=== PATIENT | male | born 1940 | race Caucasian/White ===

== ENCOUNTER 2016-06-30 08:08 | Day surgery (SDC) | payer MEDICARE ==
[~2016-06-30] VITALS: Ht 167.6 cm; Wt 73.1 kg
[2016-06-30] MEDS: Lactated Ringer's 1,000 ML IV SCH ×2 (05:11→09:48)
[~2016-06-30 08:08] MED LIST: ALBU8.5H2 INHALATION; BUTA1TAB52 PO; CETI10CA PO; CHOL200047 PO; CYAN500 PO; CeFAZolin 2 Gm/50 mL D5W IV Premix IV ONE; FINA5TAB9 PO; FLUN25SP NS; LEVO75CA2 PO; LISI10TA PO; MIRA50TA PO; MULT-1018 PO; OLOP2.5D OP; OMEP20TA86 PO; PRD5T PO; SAW/1TAB2 PO; TAMS0.4C98 PO; TRAZ-118 PO; gabapentin PO; melatonin PO
[2016-06-30] MEDS ORDERED: Ketamine 10 mg/mL 20 mL Inj ONE (08:09)
[2016-06-30] MEDS ORDERED: fentaNYL-PF 50 mCg/mL 2 mL Inj ONE (08:09)
[2016-06-30 08:33] VITALS: BP 135/92; PULSE 57; RESP 16; O2SAT 99
--- NOTE | 2016-06-30 09:18 | PCM.HPANE ---
Patient Data Surgeon Admitting Provider: Attending Provider:Tammie Drake MD Primary Care Physician:Miah Mckeon MD Other Provider:Mahogany [place] Anesthesia Reason for Visit Urge Incontinence Ht/WT & BMI Height (Feet): 5 Height (Inches): 6.00 Weight (Kilograms): 73.1 Body Mass Index 25.00 Allergies Uncoded Allergies: SEASONAL ALLERGIES (Allergy, Unknown, 06/25/16) Past Anesthesia History Anesthesia History: Denies:: Abnormal Airway, Anesthesia Reactions, Difficult Intubation, Fam Anesthesia Reaction Diabetes History Hx Diabetes?: No MRSA MRSA: No Medications Hypertension Medication: Yes Home Meds Incl Beta New: No Reported Medications Cetirizine HCl (Zyrtec)10 Mg Knabpht42 Mg PO HS #30 CAPSULE Ref 0 06/25/16 Cholecalciferol (Vitamin D3) (Vitamin D3)2,000 Unit Capsule2,000 Unit PO DAILY 06/25/16 Cyanocobalamin (Vitamin B12)500 Mcg Tablet1,000 Mcg PO DAILY 06/25/16 Trazodone 100 Mg [id number] Mg PO BID Ref 0 06/25/16 Levothyroxine (Tirosint)75 Mcg Yoqaxkb41 Mcg PO DAILY 06/25/16 Tamsulosin (Flomax)0.4 Mg Capsule0.4 Mg PO DAILY Ref 0 06/25/16 Saw/Vit E/Sod Dania/Lyc/Beta/Pyg (Prostate Health Caplet)1 Each Tablet1 Each PO DAILY 06/25/16 Albuterol HFA (Proair HFA)8.5 Gm Hfa.aer.ad2 Puffs INHALATION Q4H PRN For Shortness of Breath #1 INHALER 06/25/16 Prednisone (PredniSONE)5 Mg Tab5 Mg PO DAILY Ref 0 06/25/16 Olopatadine HCl (Pataday)2.5 Ml Drops2.5 Ml OP DAILY 06/25/16 Omeprazole 20 Mg Tablet.dr20 Mg PO DAILY 06/25/16 Mirabegron ER (Myrbetriq)50 Mg Fsklrz74 Mg PO DAILY 06/25/16 Multivitamin (Multi Vitamin Daily)1 Each Tablet1 Each PO DAILY 30 Days Ref 0 06/25/16 [melatonin] No Conflict CheckUnknown Dose DAILY 06/25/16 Lisinopril 10 Mg Lcdhwj09 Mg PO DAILY 30 Days Ref 0 06/25/16 [gabapentin] No Conflict CheckUnknown Dose TID 06/25/16 Flunisolide 25 Ml Spray25 Ml NS BID 06/25/16 Finasteride 5 Mg Tablet5 Mg PO DAILY 30 Days Ref 0 06/25/16 Butalbital/Acetaminophen 50-325 mg 1 Each Tablet1-2 Tablet PO Q4H PRN migraines 06/25/16 History HEENT History: Denies:: Abnormal Airway Difficult Intubation Dysphagia Hearing Problem Sinus Problem TMJ Hx of Heart Problems?: Yes Cardiovascular History: Positive for:: Hypertension Denies:: AICD Chest Pain Congestive Heart Failure Coronary Artery Disease Edema Heart Murmur Irregular Heartbeat Pacemaker Peripheral Vascular Hx of Respiratory Problem?: Yes Respiratory History: Positive for:: Asthma (during spring- seasonally) Use of Inhalers / NEBS (during spring) Denies:: COPD Emphysema Oxygen Administration Pneumonia Tuberculosis Use of C-PAP Machine Hx Neurologic Problems?: Yes Neurological History: Positive for:: Headaches (migraines - a couple a month) Denies:: CVA Dizziness Multiple Sclerosis Parkinson's Disease Seizures TIA Hx of GI Problems?: Yes Gastrointestinal History: Positive for:: Gastroesphageal Reflux Heartburn Denies:: Gall Bladder Disease Gastrointestinal Bleeding Hepatitis Hiatal Hernia Liver Disease Rectal Bleeding Hx of Problems?: Yes Genitourinary History: Denies:: Kidney Stones Urinary Tract Infection Male Hx: Positive for:: Prostate Problems (s/p turp) Skin History: Denies:: History Skin Disorders? Pressure Ulcers Hx Musculoskeletal Problems?: Yes Musculoskeletal History: Positive for:: Back Injury (chronic back pain, ) Denies:: Fibromyalgia Joint Replacement Musculoskeletal Trauma Myasthenia Gravis Osteoarthritis Rheumatoid Arthritis Hx of Psycho/Social Problems?: No Psycho Social History: Denies:: Anxiety Hx Depression Hx Surgeries?: Yes (hernia repair, TURP, ) Hx Any Other Health Problems?: Yes Other History: Positive for:: Cancer (skin cancer facial, scalp, ) Thyroid Disease History Blood Transfusions: Positive for:: Accept Blood Products? Denies:: Blood Transfusions Hx Diabetes: No Hx Alcohol Use: NoHx Substance Use: NoHave You Smoked inLast 12 mo: No Stop/Bang S-Snoring: Do You Snore Loudly: No T-Tired: feel tired, fatigued: Yes O-Obsered: Observed not breath: No P-Blood Pressure: treated: Yes B- Body Mass Index > 35 kg/m2: No A- Age over 50: Yes N- Neck Large Circumference: No G- Gender Male: Yes JOANN Total Score: 4 JOANN Risk Assessment: High Risk, =/>3 Yes JOANN Category 4 OutPt Procedure: Yes Risk Assessment Category Category 1A: Patient has history of documented sleep apnea, and HAS NOT received any narcotic, sedative or anesthesia administration during this stay. Category 1B: Patient has history of documented sleep apnea, and HAS received any narcotic , sedative or anesthesia administration during this stay Category 2: Patient has SUSPECTED Obstructive Sleep Apnea, and HAS received any narcotic , sedative or anesthesia administration during this stay. Category 3: Patient has SUSPECTED Obstructive Sleep Apnea and HAS NOT received narcotic, sedative or anesthesia administration during this stay. Category 4: Outpatient in Procedural Areas with known sleep apnea or who screen positive for High Risk via the STOP/BANG questionnaire. Exam Exam Vital Signs Vital Signs Date Time Temp Pulse Resp B/P Pulse Ox O2 Delivery O2 Flow Rate FiO2 06/30/16 08:33 36.4 57 16 135/92 99 Room Air General Appearance: Alert, Oriented X3, Cooperative, No Acute Distress HEENT/AIRWAY: MP 2 Lungs: Clear to Auscultation, Normal Air Movement Heart: Exam Unremarkable, Regular Rate/Rhythm, No Murmurs/Rubs/Gallops Meds/Labs/Diagnostics Admission Meds Current Medications Lactated Ringer's (Lr) 1,000 ml @ 120 mls/hr Q8H20M IV Last administered on t 05:11; Start 06/30/16 at 05:00; Stop 06/30/16 at 13:19 Plan Impression Patient chart reviewed, patient interviewed and anesthestic plan with risks, benefits, and alternatives discussed, and informed consent obtained. NPO Status: 06/29 at 1830 ASA Physical Status: ASA2 Mod Systemic Disease Mayco Kelley MD Jun 30, 2016 09:18
[2016-06-30] MEDS ORDERED: Lactated Ringer's 500 ML IV PRN (10:02)
[2016-06-30] MEDS ORDERED: Lactated Ringer's 1,000 ML IV SCH (10:02)
[2016-06-30] MEDS ORDERED: HYDROmorphone 1 mg/mL Inj IVPUSH PRN (10:05)
[2016-06-30] MEDS ORDERED: Ondansetron 2 mg/mL 2 mL Inj IVPUSH PRN (10:05)
[2016-06-30] MEDS ORDERED: Phenylephrine 10,000 mCg/mL Inj IVPUSH PRN (10:05)
[2016-06-30] MEDS ORDERED: fentaNYL-PF 50 mCg/mL 2 mL Inj IVPUSH PRN (10:05)
[2016-06-30] MEDS ORDERED: EPHEDrine Sulfate 50 mg/mL Inj IVPUSH PRN (10:05)
[2016-06-30] MEDS ORDERED: MetoCLOpramide 5 mg/mL 2 mL Inj IVPUSH PRN (10:05)
[2016-06-30] MEDS ORDERED: Dexamethasone 4 mg/mL Inj IVPUSH PRN (10:05)
[2016-06-30] MEDS ORDERED: Bupivacaine-MPF 0.5% W/EPI 30 mL Inj INFILTRATE ONE (10:07)
[2016-06-30] MEDS ORDERED: Lidocaine 1% 50 mL Inj NERVEBLOCK ONE (10:07)
[2016-06-30] MEDS ORDERED: Vancomycin 1,000 mg Inj IRRIGATION ONE (10:08)
[2016-06-30] MEDS ORDERED: Gentamicin 40 mg/mL 2 mL Inj IRRIGATION ONE (10:08)
[2016-06-30 10:55] VITALS: BP 118/69; PULSE 58; RESP 17; O2SAT 95
[2016-06-30] MEDS ORDERED: HYDROcodone-APAP 5-325 mg Tablet PO PRN (10:55)
[2016-06-30] MEDS ORDERED: Ondansetron 8 mg ODT Tablet PO PRN (10:55)
[2016-06-30 12:00] VITALS: BP 126/72; PULSE 52; RESP 19; O2SAT 94
--- NOTE | 2016-06-30 13:25 | PCM.ANEP2 ---
Post Anesthesia Evaluation ASA/CMS Post Anesthesia VS in Patient's Normal Range?: Yes Resp Stable; Airway Patent?: Yes CV Function & Hydration Stable: Yes Mental Status Recovered?: Yes Pain control Satisfactory?: Yes N/V Control Satisfactory?: Yes Mayco Kelley MD Jun 30, 2016 13:25
--- NOTE | 2016-06-30 13:25 | PCM.ANEP1 ---
Post Anesthesia Phase 1 PACU Phase 1 Assessment Vital Signs Vital Signs Date Time Temp Pulse Resp B/P Pulse Ox O2 Delivery O2 Flow Rate FiO2 06/30/16 12:00 36.5 52 19 126/72 94 Room Air 06/30/16 10:55 36.7 58 17 118/69 95 Room Air 06/30/16 08:33 36.4 57 16 135/92 99 Room Air Anesthetic Administered: MAC Level of Alertness: Awake, talking IVY's with Equal Strength: Yes Pain: No Nausea or Vomiting: No Oxygen Delivery: Nasal Cannula Lungs: Clear to Auscultation, Normal Air Movement Dermatome Level: Full Sensation Mayco Kelley MD Jun 30, 2016 13:25
--- NOTE | 2016-06-30 23:16 | OP ---
[address] [address] OPERATIVE REPORT PATIENT: DHAVAL WHITNEY : 1940 MR#: [id number] ADMIT: 06/30/2016 JOB ID: [id number] DATE OF SURGERY: 06/30/2016 PROCEDURE: Stage 1 InterStim implant to include transforaminal placement of sacral neural electrode, as well as fluoroscopy imaging guidance. SURGEON: Tammie Drake MD. ANESTHESIA: Local with monitored anesthesia care IV sedation. PREOPERATIVE DIAGNOSIS(ES): Intractable urinary urgency, frequency, urge incontinence, failing multiple medical and behavioral treatments, electing trial of sacral neuromodulation. POSTOPERATIVE DIAGNOSIS(ES): PROCEDURE IN DETAIL: After appropriate informed consent was obtained, patient was brought to the operating room. He received IV antibiotics prior to onset of the procedure. He was placed in the prone position. All pressure points carefully padded. Cleaned, prepped and draped in usual sterile fashion. Fluoroscope was brought in to identify bony landmarks. We used a half/half mixture of lidocaine Marcaine with epinephrine for local anesthesia, along with IV sedation per Anesthesia service. Finder needle was used to traverse the right-sided S3 sacral foramen. This was confirmed by rema in toe flexion indicating an S3 response. In Seldinger fashion, we converted this over to quadripolar sacral neural electrode. We had good responses on all four electrodes at very low thresholds comfortable time to allow to deploy and the lead was locked into place. We then tunneled out the distal end to the pocket site, which was created again using fluoroscopy guidance in good location on the right side sharply, bluntly with electrocautery enlarged to accommodate the size of the connection to the extension wire. The extension wire was connected and this was tunneled out Contralaterally. We then rinsed out the wounds copiously with antibiotic solution and closed in layers of 2-0 Vicryl, 4-0 Monocryl, benzoin and Steri-Strips. PA and lateral images were taken permanently. The patient tolerated procedure very well, was awakened, taken back to the one day surgery area.
== END 2016-06-30 23:59 | disposition home or self-care (01) ==
LOC: SAS 08:08
PROVIDERS: ATTEND Urology
DX: N39.41 Urge incontinence (principal); R35.0 Frequency of micturition; N40.1 Benign prostatic hyperplasia with lower urinary tract symptoms; I10 Essential (primary) hypertension; J45.909 Unspecified asthma, uncomplicated; K21.9 Gastro-esophageal reflux disease without esophagitis; Z87.442 Personal history of urinary calculi; Z85.828 Personal history of other malignant neoplasm of skin
CPT/HCPCS: 64581; C1778; J0690; J1580; J2250; J3370; J7120

== ENCOUNTER 2016-07-09 06:25 | Day surgery (SDC) | payer MEDICARE ==
[~2016-07-09] VITALS: Ht 170.2 cm; Wt 72.2 kg
[2016-07-09] MEDS ORDERED: Ketamine 10 mg/mL 20 mL Inj ONE (06:26)
[2016-07-09] MEDS ORDERED: Ondansetron 2 mg/mL 2 mL Inj ONE (06:26)
[2016-07-09] MEDS ORDERED: Dexamethasone 4 mg/mL Inj ONE (06:26)
[2016-07-09] MEDS ORDERED: Propofol 10,000 mCg/mL 20 mL Inj ONE (06:26)
[2016-07-09] MEDS ORDERED: fentaNYL-PF 50 mCg/mL 2 mL Inj ONE (06:26)
[2016-07-09] MEDS: Lactated Ringer's 1,000 ML IV SCH ×2 (06:30→08:17)
[2016-07-09 06:51] VITALS: BP 122/75; PULSE 51; RESP 12; O2SAT 97
[2016-07-09 07:05] VITALS: BP 122/75; PULSE 51; RESP 12; O2SAT 97
[2016-07-09] MEDS ORDERED: Lactated Ringer's 500 ML IV PRN (07:49)
[2016-07-09] MEDS ORDERED: Lactated Ringer's 1,000 ML IV SCH (07:49)
--- NOTE | 2016-07-09 07:49 | PCM.HPANE ---
Patient Data Surgeon Admitting Provider: Attending Provider:Tammie Drake MD Primary Care Physician:Miah Mckeon MD Other Provider:Mahogany [place] Anesthesia Reason for Visit Urge Incontinence Ht/WT & BMI Height (Feet): 5 Height (Inches): 7.00 Weight (Kilograms): 72.200 Body Mass Index 24.00 Allergies Uncoded Allergies: SEASONAL ALLERGIES (Allergy, Unknown, 06/25/16) Past Anesthesia History Anesthesia History: Denies:: Abnormal Airway, Anesthesia Reactions, Difficult Intubation, Fam Anesthesia Reaction Diabetes History Hx Diabetes?: No MRSA MRSA: No Medications Hypertension Medication: Yes Home Meds Incl Beta New: No Reported Medications Cetirizine HCl (Zyrtec)10 Mg Sfbxuty21 Mg PO HS #30 CAPSULE Ref 0 06/25/16 Cholecalciferol (Vitamin D3) (Vitamin D3)2,000 Unit Capsule2,000 Unit PO DAILY 06/25/16 Cyanocobalamin (Vitamin B12)500 Mcg Tablet1,000 Mcg PO DAILY 06/25/16 Trazodone 100 Mg Kjiivj753 Mg PO BID Ref 0 06/25/16 Levothyroxine (Tirosint)75 Mcg Hjnodrp60 Mcg PO DAILY 06/25/16 Tamsulosin (Flomax)0.4 Mg Capsule0.4 Mg PO DAILY Ref 0 06/25/16 Saw/Vit E/Sod Dania/Lyc/Beta/Pyg (Prostate Health Caplet)1 Each Tablet1 Each PO DAILY 06/25/16 Albuterol HFA (Proair HFA)8.5 Gm Hfa.aer.ad2 Puffs INHALATION Q4H PRN For Shortness of Breath #1 INHALER 06/25/16 Prednisone (PredniSONE)5 Mg Tab5 Mg PO DAILY Ref 0 06/25/16 Olopatadine HCl (Pataday)2.5 Ml Drops2.5 Ml OP DAILY 06/25/16 Omeprazole 20 Mg Tablet.dr20 Mg PO DAILY 06/25/16 Mirabegron ER (Myrbetriq)50 Mg Zsiqwy03 Mg PO DAILY 06/25/16 Multivitamin (Multi Vitamin Daily)1 Each Tablet1 Each PO DAILY 30 Days Ref 0 06/25/16 [melatonin] 5 No Conflict Check5 Mg PO DAILY 06/25/16 Lisinopril 10 Mg Kqmpdv63 Mg PO DAILY 30 Days Ref 0 06/25/16 [gabapentin] No Conflict Syjez525 Mg PO BID 06/25/16 Flunisolide 25 Ml Spray25 Ml NS BID 06/25/16 Finasteride 5 Mg Tablet5 Mg PO DAILY 30 Days Ref 0 06/25/16 Butalbital/Acetaminophen 50-325 mg 1 Each Tablet1-2 Tablet PO Q4H PRN migraines 06/25/16 History HEENT History: Denies:: Abnormal Airway Difficult Intubation Dysphagia Hearing Problem Sinus Problem TMJ Hx of Heart Problems?: Yes Cardiovascular History: Positive for:: Hypertension Denies:: AICD Chest Pain Congestive Heart Failure Edema Heart Murmur Irregular Heartbeat Pacemaker Hx of Respiratory Problem?: Yes Respiratory History: Positive for:: Asthma (during spring- seasonally) Denies:: COPD Emphysema Oxygen Administration Pneumonia Tuberculosis Use of C-PAP Machine Hx Neurologic Problems?: Yes Neurological History: Positive for:: Headaches (migraines - a couple a month) Denies:: CVA Dizziness Multiple Sclerosis Parkinson's Disease Seizures Hx of GI Problems?: Yes Gastrointestinal History: Positive for:: Gastroesphageal Reflux Heartburn Denies:: Gastrointestinal Bleeding Hepatitis Hiatal Hernia Rectal Bleeding Hx of Problems?: Yes Genitourinary History: Denies:: Kidney Stones Urinary Tract Infection Other Pertinent History: stage 1 interstim done 06/30/16 Male Hx: Positive for:: Prostate Problems (s/p turp) Skin History: Denies:: History Skin Disorders? Pressure Ulcers Hx Musculoskeletal Problems?: Yes Musculoskeletal History: Positive for:: Back Injury (chronic back pain, ) Denies:: Joint Replacement Musculoskeletal Trauma Hx of Psycho/Social Problems?: No Psycho Social History: Denies:: Anxiety Hx Depression Hx Surgeries?: Yes (hernia repair, TURP, stage 1 interstim) Hx Any Other Health Problems?: Yes Other History: Positive for:: Cancer (skin cancer facial, scalp, ) Thyroid Disease History Blood Transfusions: Positive for:: Accept Blood Products? Denies:: Blood Transfusions Hx Diabetes: No Hx Alcohol Use: NoHx Substance Use: No Smoking Status: Never Smoker Have You Smoked inLast 12 mo: No Stop/Bang S-Snoring: Do You Snore Loudly: No T-Tired: feel tired, fatigued: Yes O-Obsered: Observed not breath: No P-Blood Pressure: treated: Yes B- Body Mass Index > 35 kg/m2: No A- Age over 50: Yes N- Neck Large Circumference: No G- Gender Male: Yes JOANN Total Score: 4 JOANN Risk Assessment: High Risk, =/>3 Yes Risk Assessment Category Category 1A: Patient has history of documented sleep apnea, and HAS NOT received any narcotic, sedative or anesthesia administration during this stay. Category 1B: Patient has history of documented sleep apnea, and HAS received any narcotic , sedative or anesthesia administration during this stay Category 2: Patient has SUSPECTED Obstructive Sleep Apnea, and HAS received any narcotic , sedative or anesthesia administration during this stay. Category 3: Patient has SUSPECTED Obstructive Sleep Apnea and HAS NOT received narcotic, sedative or anesthesia administration during this stay. Category 4: Outpatient in Procedural Areas with known sleep apnea or who screen positive for High Risk via the STOP/BANG questionnaire. Exam Exam Vital Signs Vital Signs Date Time Temp Pulse Resp B/P Pulse Ox O2 Delivery O2 Flow Rate FiO2 07/09/16 07:05 35.9 51 12 122/75 97 Room Air 07/09/16 06:51 35.9 51 12 122/75 97 Room Air General Appearance: Alert, Oriented X3, Cooperative, No Acute Distress HEENT/AIRWAY: MP 2 Lungs: Clear to Auscultation, Normal Air Movement Heart: Exam Unremarkable, Regular Rate/Rhythm, No Murmurs/Rubs/Gallops Meds/Labs/Diagnostics Admission Meds Current Medications Lactated Ringer's (Lr) 1,000 ml @ 120 mls/hr Q8H20M IV Last administered on t 06:30; Start 07/09/16 at 05:00; Stop 07/09/16 at 13:19 Plan Impression Patient chart reviewed, patient interviewed and anesthestic plan with risks, benefits, and alternatives discussed, and informed consent obtained. NPO Status: 430PM ASA Physical Status: ASA2 Mod Systemic Disease Anesthetic Plan: MAC Bene/Risks/Altern/Consents: Yes HP Complete Prior to Induction: Yes Mayco Kelley MD Jul 09, 2016 07:49
[2016-07-09] MEDS ORDERED: EPHEDrine Sulfate 50 mg/mL Inj IVPUSH PRN (07:50)
[2016-07-09] MEDS ORDERED: Phenylephrine 10,000 mCg/mL Inj IVPUSH PRN (07:50)
[2016-07-09] MEDS ORDERED: HYDROmorphone 1 mg/mL Inj IVPUSH PRN (07:50)
[2016-07-09] MEDS ORDERED: MetoCLOpramide 5 mg/mL 2 mL Inj IVPUSH PRN (07:50)
[2016-07-09] MEDS ORDERED: Ondansetron 2 mg/mL 2 mL Inj IVPUSH PRN (07:50)
[2016-07-09] MEDS ORDERED: Dexamethasone 4 mg/mL Inj IVPUSH PRN (07:50)
[2016-07-09] MEDS ORDERED: fentaNYL-PF 50 mCg/mL 2 mL Inj IVPUSH PRN (07:50)
[2016-07-09] MEDS ORDERED: Lidocaine 1% 50 mL Inj INFILTRATE ONE (08:17)
[2016-07-09] MEDS ORDERED: Gentamicin 40 mg/mL 2 mL Inj IRRIGATION ONE (08:17)
[2016-07-09] MEDS ORDERED: Vancomycin 1,000 mg Inj IRRIGATION ONE (08:17)
[2016-07-09] MEDS ORDERED: Bupivacaine-MPF 0.5% W/EPI 30 mL Inj INFILTRATE ONE (08:17)
[2016-07-09 09:03] VITALS: BP 106/55; PULSE 65; RESP 18; O2SAT 96
[2016-07-09] MEDS ORDERED: Ondansetron 8 mg ODT Tablet PO PRN (09:05)
[2016-07-09] MEDS ORDERED: HYDROcodone-APAP 5-325 mg Tablet PO PRN (09:05)
[2016-07-09 09:25] VITALS: BP 109/58; PULSE 69; RESP 16; O2SAT 98
--- NOTE | 2016-07-09 11:30 | PCM.ANEP1 ---
Post Anesthesia Phase 1 PACU Phase 1 Assessment Vital Signs Vital Signs Date Time Temp Pulse Resp B/P Pulse Ox O2 Delivery O2 Flow Rate FiO2 07/09/16 09:25 36.5 69 16 109/58 98 Room Air 07/09/16 09:03 36.5 65 18 106/55 96 Room Air 07/09/16 07:05 35.9 51 12 122/75 97 Room Air 07/09/16 06:51 35.9 51 12 122/75 97 Room Air Anesthetic Administered: MAC Level of Alertness: Awake, talking IVY's with Equal Strength: Yes Pain: No Nausea or Vomiting: No Oxygen Delivery: Nasal Cannula Lungs: Clear to Auscultation, Normal Air Movement Dermatome Level: Full Sensation Mayco Kelley MD Jul 09, 2016 11:29
--- NOTE | 2016-07-09 11:30 | PCM.ANEP2 ---
Post Anesthesia Evaluation ASA/CMS Post Anesthesia VS in Patient's Normal Range?: Yes Resp Stable; Airway Patent?: Yes CV Function & Hydration Stable: Yes Mental Status Recovered?: Yes Pain control Satisfactory?: Yes N/V Control Satisfactory?: Yes Mayco Kelley MD Jul 09, 2016 11:30
--- NOTE | 2016-07-10 06:21 | OP ---
[address] [address] OPERATIVE REPORT PATIENT: DHAVAL WHITNEY : 1940 MR#: [id number] ADMIT: 07/09/2016 JOB ID: [id number] DATE OF SURGERY: 07/09/2016 PROCEDURE: Stage II InterStim implant to include implantable pulse generator implantation and complex initial programming and setup of the neurostimulator device. SURGEON: Tammie Drake MD. ANESTHESIA: Local with monitored anesthesia care, IV sedation. PREOPERATIVE DIAGNOSIS(ES): Intractable urinary urgency, frequency, urge incontinence. POSTOPERATIVE DIAGNOSIS(ES): Intractable urinary urgency, frequency, urge incontinence. INDICATIONS: The patient is a 75-year-old gentleman with a very long history of complex urologic history including ultimately intractable urinary urgency, frequency, urge incontinence, also history of strictures, with severe problems despite numerous medications and behavioral changes after successful dilation of his strictures and resolution of any outlet obstruction. He wished to proceed with InterStim testing. On June 30, 2016, he underwent placement of a right sided quadripolar lead with the right pocket. His results during the test were outstanding. He went from voiding multiple times per hour and leaking daily to holding the 3-4 hours with ease, considered himself nearly 100% improved, wishing to proceed with implantation. PROCEDURE IN DETAIL: After appropriate informed consent was obtained, patient was brought to the operating room. He is made comfortable in the prone position. All pressure points carefully padded. Cleaned, prepped and draped in the usual sterile fashion. The right sided buttock pocket was identified, infiltrated with half and half mixture of lidocaine Marcaine for local anesthesia, opened up and enlarged, sharply bluntly with electrocautery. We identified the extension wire. This was and the extension piece was allowed to be removed. Hemostasis was achieved with electrocautery. The pocket itself was irrigated out copiously with antibiotic solution of vancomycin and gentamicin. We then attached the [employer] 2 IPG with the ratcheted screwdriver. Gentle tug revealed a good connection. This fit nicely into the pocket. It was irrigated out further with antibiotic solution and then closed in a layer of 2-0 Vicryl, layer of 4-0 Monocryl and a layer of Dermabond. Hemostasis was excellent. The patient tolerated the procedure well and was returned to the one day surgery area. He was awake. Device itself was then turned on and found to be operating within normal parameters. It was set up initially with a rate of 14, pulse width of 210. Program one was set at 0 negative and 3 positive. Program two was 1 negative and 3 positive. Program three was 2 negative and 0 positive and program four at 3 negative, 0 positive. [employer] stimulation in appropriate location, comfortable, tolerated the procedure very well.
== END 2016-07-09 23:59 | disposition home or self-care (01) ==
LOC: SAS 06:25 → EDUNIT# 08:15 → SAS 23:59
PROVIDERS: ATTEND Urology
DX: N39.41 Urge incontinence (principal); I10 Essential (primary) hypertension; J45.909 Unspecified asthma, uncomplicated; G43.909 Migraine, unspecified, not intractable, without status migrainosus; K21.9 Gastro-esophageal reflux disease without esophagitis; R12 Heartburn; Z79.899 Other long term (current) drug therapy